=== PATIENT | male | born 1965 | race Caucasian/White ===

== ENCOUNTER 2017-08-17 22:08 | Emergency (ER) | payer MEDICAID ==
[~2017-08-17] VITALS: Ht 177.8 cm; Wt 82.6 kg
[2017-08-17 22:08] VITALS: BP_SYST 158
[~2017-08-17 22:08] MED LIST: LISI10TA PO
--- NOTE | 2017-08-17 22:08 | NUR ---
Patient to ER bed 5 to gown for evaluation. Side rails up. Report given to Wilbert PORTER.
--- NOTE | 2017-08-17 22:10 | NUR ---
Patient arrived to ED a/o x 4 with c/o insect bite to right buttocks. Patient reports he noticed bite x 1 day ago. Unknown source. Presents with red and inflammed right buttocks. Denies fever. Denies chills. Skin warm, dry and pink. Respirations even and unlabored. Upon assessment patient has finger stick blood glucose of 458. ED MD Greenberg made aware of values.
[2017-08-17] MEDS ORDERED: INSULIN REGULAR, HUMAN 10 UNITS/0.1 ML INJ IVP ONE (22:30)
[2017-08-17] MEDS ORDERED: CEFAZOLIN 2 GM IVPB PREMIX 50 ML IV ONE (22:30)
[2017-08-17] MEDS ORDERED: NACL 0.9% 1,000 ML IV ONE (22:30)
--- NOTE | 2017-08-17 22:30 | NUR ---
ER at bedside examining patient.
--- NOTE | 2017-08-17 22:30 | NUR ---
20 gauge angiocath placed to left forearm. Use of asceptic technique. Opsite placed over site. Blood return noted. Blood for lab drawn from site. Flushed with 10 cc of normal saline. No evidence of infiltration noted. Patient tolerated well.
--- NOTE | 2017-08-17 22:41 | NUR ---
Medicated per MD orders. IVF infusing with no s/s of infiltration at this time. Will cont to monitor
[2017-08-17 22:49] LABS: BASOPHILS % (AUTO) 0.5 % (0.0-2.0); EOSINOPHILS # (AUTO) 0.4 K/uL (0.0-0.4); EOSINOPHILS % (AUTO) 3.7 % (0.0-4.0); HEMATOCRIT 44.1 % (36-54); HEMOGLOBIN 14.5 g/dL (14.0-18.0); LYMPHOCYTES # (AUTO) 3.5 K/uL (1.0-5.5); LYMPHOCYTES % (AUTO) 35.5 % (20.5-51.5); MEAN CORPUSCULAR HEMOGLOBIN 30 pg (27-31); MEAN CORPUSCULAR HGB CONC 33 % (32-36); MEAN CORPUSCULAR VOLUME 91 fL (79.0-98.0); MONOCYTES # (AUTO) 0.8 K/uL (0.0-1.0); NEUTROPHILS % (AUTO) 52.3 % (40.0-70.0); PLATELET COUNT (AUTO) 264 K/uL (130-430); RED BLOOD CELL COUNT(AUTO) 4.85 MIL/uL (4.2-6.2); RED CELL DISTRIBUTION WIDTH 12.5 % (9.0-15.0); WHITE BLOOD COUNT (AUTO) 9.7 K/uL (4.8-10.8)
[2017-08-17] MEDS ORDERED: ceFAZolin SODIUM 1 GM VIAL ONE (23:00)
[2017-08-17 23:01] LABS: CALCIUM 8.9 mg/dL (8.4-11.0); CREATININE 1.08 mg/dL (0.55-1.30); POTASSIUM 3.9 mmol/L (3.5-5.1)
[2017-08-17 23:11] LABS: ALBUMIN 3.6 g/dL (3.4-4.8); TOTAL BILIRUBIN 0.2 mg/dL (0.0-1.0)
--- NOTE | 2017-08-17 23:40 | NUR ---
ED Kwaw at bedside reassessing patient.
[2017-08-18] VITALS: BP_SYST 153
--- NOTE | 2017-08-18 | NUR ---
Patient given written and verbal discharge instructions and verbalizes understanding. ER MD discussed with patient the results and treatment provided. Patient in stable condition. ID arm band removed. IV catheter removed intact and dressing applied, no active bleeding. Rx of keflex and metformin given. Patient educated on pain management and to follow up with PMD. Pain Scale 2/10 tolerable for patient. Opportunity for questions provided and answered.
== END 2017-08-18 | disposition home or self-care (01) ==
LOC: SED 22:08
DX: S30.860A Insect bite (nonvenomous) of lower back and pelvis, initial encounter (principal); L03.317 Cellulitis of buttock; E11.65 Type 2 diabetes mellitus with hyperglycemia; I10 Essential (primary) hypertension; Z88.0 Allergy status to penicillin; Z88.2 Allergy status to sulfonamides; W57.XXXA Bitten or stung by nonvenomous insect and other nonvenomous arthropods, initial encounter; Y93.89 Activity, other specified; Y92.89 Other specified places as the place of occurrence of the external cause; Y99.8 Other external cause status
CPT/HCPCS: 36415; 80053; 85025; 96365; 96375; 99284; J0690; J1815; J7030; J7060

== ENCOUNTER 2017-09-12 04:51 | Emergency (ER) | payer MEDICAID ==
[~2017-09-12] VITALS: Ht 180.3 cm; Wt 83.0 kg
[2017-09-12 04:55] VITALS: BP_SYST 150
[2017-09-12 05:15] VITALS: BP_SYST 144
== END 2017-09-12 05:15 | disposition home or self-care (01) ==
LOC: SED 04:51
DX: L02.01 Cutaneous abscess of face (principal); E11.9 Type 2 diabetes mellitus without complications; I10 Essential (primary) hypertension; Z88.0 Allergy status to penicillin; Z88.2 Allergy status to sulfonamides
CPT/HCPCS: 99283

== ENCOUNTER 2017-10-10 12:32 | Emergency (ER) | payer MEDICAID ==
[~2017-10-10] VITALS: Ht 180.3 cm; Wt 81.6 kg
[2017-10-10 12:44] VITALS: BP_SYST 157
--- NOTE | 2017-10-10 12:48 | NUR ---
Ambulatory to bed 3
--- NOTE | 2017-10-10 12:50 | NUR ---
Pt states has a pimp to chin, squeezed it and has redness and wanted to make sure everything is alright. Pt denies n/v or fever. Small amount of discharge noted but no odor. No other injuries/complaints per pt or noted.
--- NOTE | 2017-10-10 12:55 | NUR ---
ER at bedside examining patient.
[2017-10-10 13:16] VITALS: BP_SYST 145
--- NOTE | 2017-10-10 13:16 | NUR ---
Patient given written and verbal discharge instructions and verbalizes understanding. ER MD discussed with patient the results and treatment provided. Patient in stable condition. ID arm band removed. Rx of bactrim, kelfex and motrin given. Patient educated on pain management and to follow up with PMD. Pain Scale 2. Opportunity for questions provided and answered.
== END 2017-10-10 13:16 | disposition home or self-care (01) ==
LOC: SED 12:32
DX: L73.9 Follicular disorder, unspecified (principal); E11.9 Type 2 diabetes mellitus without complications; I10 Essential (primary) hypertension
CPT/HCPCS: 99283

== ENCOUNTER 2018-03-19 17:36 | Emergency (ER) | payer MEDICAID ==
[~2018-03-19] VITALS: Ht 180.3 cm; Wt 70.3 kg
[2018-03-19 18:05] VITALS: BP_SYST 110
--- NOTE | 2018-03-19 18:05 | NUR ---
Placed in room 06. Placed on cardiac cath technician, blood pressure machine and pulse oximeter. To gown for exam. Side rails up.
--- NOTE | 2018-03-19 18:06 | NUR ---
Dr. Chase notified of pt placed in bed. Pt denies chest pain/nausea at this time.
[2018-03-19 18:55] VITALS: BP_SYST 110
--- NOTE | 2018-03-19 19:02 | NUR ---
Pt AAOx4 ambulated into ED c/o R sided flank pain x 1 week with acute exacerbation last two days. Last night, pt was tired, feeling nauseous, denies vomiting, but unable to tolerate foods/liquids. Pt tachycardic at 135. Last meal was this morning. No other injuries/complaints per pt/noted. Will continue to monitor.
--- NOTE | 2018-03-19 19:08 | NUR ---
ER Dr. Chase at bedside examining patient.
[2018-03-19 19:45] LABS: BASOPHILS # (AUTO) 0.3 K/uL (0.0-0.2); BASOPHILS % (AUTO) 1.7 % (0.0-2.0); EOSINOPHILS # (AUTO) 0.1 K/uL (0.0-0.4); EOSINOPHILS % (AUTO) 0.8 % (0.0-4.0); HEMATOCRIT 50.5 % (36-54); HEMOGLOBIN 16.9 g/dL (14.0-18.0); LYMPHOCYTES # (AUTO) 3.2 K/uL (1.0-5.5); LYMPHOCYTES % (AUTO) 21.2 % (20.5-51.5); MEAN CORPUSCULAR HEMOGLOBIN 30 pg (27-31); MEAN CORPUSCULAR HGB CONC 34 % (32-36); MEAN CORPUSCULAR VOLUME 88 fL (79.0-98.0); MONOCYTES # (AUTO) 0.9 K/uL (0.0-1.0); NEUTROPHILS # (AUTO) 10.6 K/uL (1.8-7.7); NEUTROPHILS % (AUTO) 70.3 % (40.0-70.0); PLATELET COUNT (AUTO) 322 K/uL (130-430); RED BLOOD CELL COUNT(AUTO) 5.74 MIL/uL (4.2-6.2); RED CELL DISTRIBUTION WIDTH 12.5 % (9.0-15.0); WHITE BLOOD COUNT (AUTO) 15.1 K/uL (4.8-10.8)
[2018-03-19] MEDS ORDERED: ASPIRIN 81 MG TAB.CHEW PO ONE (19:45)
[2018-03-19] MEDS ORDERED: HEPARIN SODIUM,PORCINE 5000 UNITS/ML VIAL IVP ONE (19:45)
[2018-03-19] MEDS ORDERED: ASPIRIN 81 MG TAB.CHEW ONE (19:46)
--- NOTE | 2018-03-19 19:48 | NUR ---
Aspirin and Heparin administered. Pt tolerated well. No adverse reactions noted. Addendum: 03/19/18 at 1953 by HARSHAD Heparin 5000 units given verified by Chris Oreilly Sup
[2018-03-19] MEDS ORDERED: NITROGLYCERIN 0.4 MG TAB.SUBL SL ONE (19:55)
--- NOTE | 2018-03-19 19:55 | NUR ---
Patient to be transferred to [facility]. Is being transferred due to higher level of care. Receiving facility has accepting physician and available space. ER physician Salvatore has signed transfer form. Patient or responsible green party has agreed to transfer and signed form. Patient belongings inventoried and will be sent with patient. Copy of nursing notes, lab reports, EKG, Physicians Orders and X-rays to be sent with patient. Report called to [facility] at receiving facility. Receiving physician is Dr. Nelson. [facility] ambulance service has been called for transfer. ETA is now.
[2018-03-19 20:04] VITALS: BP_SYST 108
[2018-03-19 20:06] LABS: CREATININE 0.91 mg/dL (0.55-1.30); POTASSIUM 4.4 mmol/L (3.5-5.1)
[2018-03-19 20:10] LABS: ALBUMIN 3.7 g/dL (3.4-4.8); TOTAL BILIRUBIN 0.6 mg/dL (0.0-1.0)
== END 2018-03-19 19:55 | disposition short-term general hospital (02) ==
LOC: SED 17:36
DX: I21.9 Acute myocardial infarction, unspecified (principal); E11.9 Type 2 diabetes mellitus without complications; I10 Essential (primary) hypertension
CPT/HCPCS: 36415; 80053; 85025; 93005; 96374; 99285; J1644

== ENCOUNTER 2018-03-31 21:11 | Inpatient (IN) | payer MEDICAID ==
[~2018-03-31] VITALS: Ht 180.3 cm; Wt 68.0 kg
--- NOTE | 2018-03-31 21:14 | NUR ---
ER MD White at bedside for medical evaluation.
--- NOTE | 2018-03-31 21:14 | NUR ---
Patient to ER bed 8 to gown for evaluation. Side rails up.
[2018-03-31] MEDS ORDERED: NACL 0.9% 1,000 ML IV ONE (21:17)
[2018-03-31 21:20] VITALS: BP_SYST 87
--- NOTE | 2018-03-31 21:25 | NUR ---
Patient AOx4, ambulatory, presents to ER with complaint of right flank pain 9/10 x 2 weeks. Patient states he was recently discharged from [facility] s/p IN. Patient has hx of HTN, DM, IN with 2 stent (distal RCA and Mid RCA). HR 109 on arrival. at bedside.
[2018-03-31] MEDS ORDERED: CLOPIDOGREL BISULFATE 75 MG TABLET PO ONE (21:30)
[2018-03-31] MEDS ORDERED: ASPIRIN 81 MG TAB.CHEW PO ONE (21:30)
[2018-03-31] MEDS ORDERED: NITROGLYCERIN 0.4 MG TAB.SUBL SL ONE (21:30)
--- NOTE | 2018-03-31 21:50 | NUR ---
# 20 gauge angiocath placed to RAC. Use of asceptic technique. Opsite placed over site. Blood return noted. Blood for lab drawn from site. Flushed with 10 cc of normal saline. No evidence of infiltration noted. Patient tolerated well.
[2018-03-31 22:10] LABS: BASOPHILS # (AUTO) 0.1 K/uL (0.0-0.2); BASOPHILS % (AUTO) 0.6 % (0.0-2.0); EOSINOPHILS # (AUTO) 0.3 K/uL (0.0-0.4); EOSINOPHILS % (AUTO) 3.4 % (0.0-4.0); HEMOGLOBIN 12.1 g/dL (14.0-18.0); LYMPHOCYTES # (AUTO) 3.1 K/uL (1.0-5.5); LYMPHOCYTES % (AUTO) 35.4 % (20.5-51.5); MEAN CORPUSCULAR HEMOGLOBIN 30 pg (27-31); MEAN CORPUSCULAR HGB CONC 34 % (32-36); MEAN CORPUSCULAR VOLUME 89 fL (79.0-98.0); MONOCYTES # (AUTO) 0.7 K/uL (0.0-1.0); MONOCYTES % (AUTO) 7.7 % (1.7-9.3); NEUTROPHILS # (AUTO) 4.6 K/uL (1.8-7.7); NEUTROPHILS % (AUTO) 52.9 % (40.0-70.0); PLATELET COUNT (AUTO) 489 K/uL (130-430); RED BLOOD CELL COUNT(AUTO) 4.07 MIL/uL (4.2-6.2); RED CELL DISTRIBUTION WIDTH 12.6 % (9.0-15.0); WHITE BLOOD COUNT (AUTO) 8.8 K/uL (4.8-10.8)
--- NOTE | 2018-03-31 22:10 | NUR ---
No adverse reactions noted after medication administration. Will continue to monitor.
[2018-03-31 22:13] LABS: CALCIUM 8.1 mg/dL (8.4-11.0); CREATININE 0.87 mg/dL (0.55-1.30); POTASSIUM 3.8 mmol/L (3.5-5.1)
[2018-03-31 22:17] LABS: ALBUMIN 3.2 g/dL (3.4-4.8); TOTAL BILIRUBIN 0.2 mg/dL (0.0-1.0)
[2018-03-31 22:19] LABS: BILIRUBIN,URINE NEGATIVE (NEGATIVE); BLOOD, URINE NEGATIVE (NEGATIVE); CLARITY/URINE SL HAZY (CLEAR); COLOR,URINE YELLOW (YELLOW); GLUCOSE,URINE NEGATIVE (NEGATIVE); KETONES,URINE TRACE (NEGATIVE); LEUKOCYTE ESTERASE ,URINE NEGATIVE (NEGATIVE); NITRITE, URINE NEGATIVE (NEGATIVE); PROTEIN URINE NEGATIVE (NEGATIVE)
[2018-03-31 22:35] LABS: BACTERIA,URINE FEW /HPF (None Seen); RBC,URINE NONE SEEN /HPF (0-3); WBC,URINE 0-3 /HPF (0-3)
[2018-03-31 22:36] LABS: FINE GRANULAR CASTS,URINE 0-10 /LPF (None Seen); HYALINE CASTS, URINE 0-10 /LPF (None Seen); MUCUS,URINE 3+ /LPF (None Seen)
[2018-03-31 22:39] LABS: PROTHROMBIN TIME 10.5 SECS (9.5-12.5)
--- NOTE | 2018-03-31 22:55 | NUR ---
End of life care decisions discussed with patient by Dr. White. Opportunity for questions and concerns addressed. Patient's code status is FULL CODE, paperwork completed and placed in chart.
[2018-03-31] MEDS ORDERED: TICA90TA PO (23:19)
[2018-03-31] MEDS ORDERED: ASPI-1063 PO (23:19)
[2018-03-31] MEDS ORDERED: GABA-531 PO (23:19)
[2018-03-31] MEDS ORDERED: CHOL3000 PO (23:19)
[2018-03-31] MEDS ORDERED: METF1000 PO (23:19)
[2018-03-31] MEDS ORDERED: TAMS-11 PO (23:19)
[2018-03-31] MEDS ORDERED: GLIP5TAB13 PO (23:19)
[2018-03-31] MEDS ORDERED: SITA100T7 PO (23:19)
[2018-03-31] MEDS ORDERED: METO25TA3 PO (23:19)
--- NOTE | 2018-03-31 23:19 | NUR ---
Medication reconciliation completed with information provided by PATIENT. Any prior medication reconciliation on file was reviewed and corrected.
--- NOTE | 2018-03-31 23:42 | NUR ---
MD Rae requested for MD White speak to MD Hoang prior to admission.
[2018-04-01] VITALS (22 sets, daily range): BP systolic 64–120
--- NOTE | 2018-04-01 00:12 | NUR ---
Patient will be admitted to care of Dr. Rae. Admitted to ICU unit. Will go to room 3. Belongings list completed. Summary report printed. Report will be given at bedside.
[2018-04-01] MEDS ORDERED: NITROGLYCERIN 0.4 MG TAB.SUBL SL PRN (00:30)
[2018-04-01] MEDS ORDERED: INSULIN REGULAR, HUMAN 100 UNITS/ML, 10 ML VIAL (novoLIN R) SUBCUT PRN (00:30)
[2018-04-01] MEDS ORDERED: MILK OF MAGNESIA 30 ML UDC PO PRN (00:30)
--- NOTE | 2018-04-01 00:40 | NUR ---
ADMISSION NOTE Received patient from ER via gurney. Patient admitted with diagnosis of CHEST PAIN AND RT FLANK PAIN. Patient is awake, alert, oriented X 4 and able to verbalize needs. Patient oriented to hospital room, call light, toileting, pain management and safety-teach back done. PT ON 2L NC, SAT 99%. RAC 20G TO SL. PT Personal belongings checked and Belongings List documented. HOB ELEVATED, BED IN LOWEST POSITION, CALL LIGHT IN REACH. WILL CONTINUE TO MONITOR.
[2018-04-01] MEDS ORDERED: TAMSULOSIN HCL 0.4 MG CAP ONE (01:26)
[2018-04-01] MEDS: TAMSULOSIN HCL 0.4 MG CAP PO SCH ×2 (01:27→08:29)
[2018-04-01] MEDS: KETOROLAC TROMETHAMINE 15 MG VIAL IVP PRN ×2 (01:28→08:29)
--- NOTE | 2018-04-01 04:00 | NUR ---
RN ROUNDS PT RESTING COMFORTABLY IN BED WITH EYES CLOSED, BREATHING IS EVEN AND UNLABORED ON 2L NC. VSS, NO SIGNS OF DISTRESS NOTED. WILL CONTINUE TO MONITOR.
--- NOTE | 2018-04-01 04:06 | NUR ---
CALLED CONSULT FOR DR. HAYDEN @2107. SPOKE TO PHOTOGRAPHY ASSISTANT #[id number]. NURSE IS AWARE
--- NOTE | 2018-04-01 04:12 | NUR ---
CALLED CONSULT FOR DR. KIMBROUGH. CONSULT WILL GO TO HIS P.A (KATHERINE NUNO). SPOKE TO ABDULKADIR. NURSE IS AWARE.
--- NOTE | 2018-04-01 07:32 | NUR ---
ENDORSEMENT BEDSIDE REPORT GIVEN TO MICHELE PORTER USING SBAR APPROACH.
--- NOTE | 2018-04-01 08:00 | NUR ---
RN OPENING NOTE PT AAOX4, SPEAKS MALTESE AND IS COOPERATIVE. NO COMPLAINT OF CHEST PAIN OR SOB, BUT COMPLAINS OF MODERATE R FLANK PAIN (PRN TORADOL ADMINISTERED). BREATHING SYMMETRICAL AND UNLABORED. IV PORT IS PATENT AND S/L, DRESSING DRY AND INTACT. PT EDUCATED ON UNIT SAFETY AND DEMONSTRATED ABILITY TO USE CALL LIGHT, WHICH IS WITHIN REACH. FALL PRECAUTIONS IN PLACE.
[2018-04-01] MEDS: metFORMIN HCL 500 MG TABLET PO SCH ×2 (08:28→17:05)
[2018-04-01] MEDS: ENOXAPARIN SODIUM 40 MG/0.4 ML SYRINGE SUBCUT SCH (08:28)
[2018-04-01] MEDS: ASPIRIN 81 MG TABLET(ECOTRIN) PO SCH (08:29)
[2018-04-01] MEDS: GABAPENTIN 300 MG CAPSULE PO SCH ×3 (08:29→21:06)
[2018-04-01] MEDS: METOPROLOL SUCCINATE 25 MG TAB.SR.24H (TOPROL XL) PO SCH (09:00)
--- NOTE | 2018-04-01 09:19 | NUR ---
Nutrition Update Peter Scale 17 noted. Pt admitted for chest pain, R flank pain. Diet: [facility] BMI: 20.9 kg/m2 RD to follow per nutrition care standards.
--- NOTE | 2018-04-01 09:30 | NUR ---
Toprol XL held due to BP Dr. Lucas paged
--- NOTE | 2018-04-01 11:50 | NUR ---
DR. KIMBROUGH AT BEDSIDE CONFIRMED KIDNEY STONES AND EDUCATED PT TO SCHEDULE AN OUTPATIENT PROCEDURE WITH HIS OFFICE ONCE HE IS DISCHARGED HOME.
--- NOTE | 2018-04-01 12:05 | NUR ---
CALLED PAGED DR HAYDEN REGARDING ORDERS AND CONSULT CALLED AT 4AM SPOKE TO BRYAN.
--- NOTE | 2018-04-01 12:23 | NUR ---
REPAGED DR HAYDEN.
--- NOTE | 2018-04-01 12:28 | NUR ---
Discharge Planning ROCK ROOM WORKER met with patient at bedside. Patient stated he plans to return home and lives with his mother and nephew. He has been dizzy and has fallen. Possibly a FWW would be helpful. Patient has no DME at home. He has been approved for four home health visits and has had one of those visits. He cannot remember the name of the [employer] company. ROCK ROOM WORKER phoned patient's sister, Angelika [phone]. The agency is [facility], . ROCK ROOM WORKER phoned Richa at [facility]. They will need an order to resume services. If patient is hospitalized longer than seven days, they will need to discharge patient. Customer Service Representative Teller/Case Management and Discharge Planning will remain available.
[2018-04-01] MEDS ORDERED: CLOPIDOGREL BISULFATE 75 MG TABLET PO ONE (13:00)
--- NOTE | 2018-04-01 13:40 | NUR ---
DR. PUIR AT BEDSIDE NEW ORDERS RECEIVED
[2018-04-01] MEDS ORDERED: NS 500 ML IV ONE (14:15)
--- NOTE | 2018-04-01 18:49 | NUR ---
RN CLOSING NOTE PT WATCHING TV WITH NO COMPLAINT OF PAIN.
--- NOTE | 2018-04-01 19:30 | NUR ---
DR URIBEIUM HERE AND SAID PT OK TO GO TO TELE AND HE WILL ENTER THE ORDER
--- NOTE | 2018-04-01 20:00 | NUR ---
PT LYING IN BED, DOZING ON AND OFF.DENIES PAIN THIS TIME.MADE AWARE OF THE PLAN TO TRANSFER TO TELE [facility].
--- NOTE | 2018-04-01 20:30 | NUR ---
DR BALLARD CONTACTED AND CONFIRM TRANSFER TO TELE SINCE ORDER WAS NOT PLACED YET.
--- NOTE | 2018-04-01 21:20 | NUR ---
Admission Note Received patient from ICU with diagnosis of chest pain, right flank pain. Patient is awake, alert, and oriented x4. Patient denies pain. No s/s of distress. Breathing is even and unlabored. Initial Plan of Care discussed-patient verbalized understanding. Oriented to room, call light, pain management and safety. Bed is down, locked, side rails up x2, call light within reach. Bed alarm on. Will continue to monitor.
--- NOTE | 2018-04-01 21:20 | NUR ---
TRANSFERRED TO RM 116-A VIA W/C IN STABLE CONDITION.REPORT GIVEN TO DMITRY.PT OWN MEDS WAS GIVEN TO NURSE PLUS BELONGINGS.SISTER JOLANTA NOTIFIED OF TRANSFER(TEL # [phone])
--- NOTE | 2018-04-01 23:45 | NUR ---
Rounds Patient is resting in bed with eyes closed. No s/s of distress. Bed is down, locked, side rails up x2, call light within reach. Bed alarm on. Will continue to monitor.
--- NOTE | 2018-04-02 01:36 | NUR ---
Rounds Patient is resting in bed with eyes closed at this time. Breathing is even and unlabored. Bed is down, locked, side rails up x2, call light within reach. Bed alarm on. Will continue to monitor.
[2018-04-02 01:53] VITALS: BP_SYST 105
--- NOTE | 2018-04-02 03:23 | NUR ---
Rounds Patient is resting quietly in bed with eyes closed. No s/s of respiratory distress noted. Breathing is even and unlabored. Bed is down, locked, side rails up x2, call light within reach. Bed alarm on. Will continue to monitor.
[2018-04-02 04:05] VITALS: BP_SYST 104
--- NOTE | 2018-04-02 05:17 | NUR ---
Rounds Patient is resting in bed with eyes closed. No s/s of respiratory distress noted at this time. Breathing is even and unlabored. Bed is down, locked, side rails up x2, call light within reach. Bed alarm on. Will continue to monitor.
[2018-04-02 06:40] LABS: BASOPHILS % (AUTO) 0.2 % (0.0-2.0); EOSINOPHILS # (AUTO) 0.3 K/uL (0.0-0.4); HEMATOCRIT 34.6 % (36-54); HEMOGLOBIN 11.9 g/dL (14.0-18.0); LYMPHOCYTES # (AUTO) 2.8 K/uL (1.0-5.5); LYMPHOCYTES % (AUTO) 31.3 % (20.5-51.5); MEAN CORPUSCULAR HEMOGLOBIN 31 pg (27-31); MEAN CORPUSCULAR HGB CONC 35 % (32-36); MEAN CORPUSCULAR VOLUME 89 fL (79.0-98.0); MONOCYTES # (AUTO) 0.8 K/uL (0.0-1.0); MONOCYTES % (AUTO) 8.7 % (1.7-9.3); NEUTROPHILS # (AUTO) 4.9 K/uL (1.8-7.7); NEUTROPHILS % (AUTO) 56.8 % (40.0-70.0); PLATELET COUNT (AUTO) 386 K/uL (130-430); RED BLOOD CELL COUNT(AUTO) 3.87 MIL/uL (4.2-6.2); RED CELL DISTRIBUTION WIDTH 12.8 % (9.0-15.0); WHITE BLOOD COUNT (AUTO) 8.8 K/uL (4.8-10.8)
[2018-04-02 06:48] LABS: CALCIUM 8.2 mg/dL (8.4-11.0); CREATININE 0.66 mg/dL (0.55-1.30); POTASSIUM 4.2 mmol/L (3.5-5.1)
--- NOTE | 2018-04-02 07:21 | NUR ---
Closing note Patient is resting in bed waiting for breakfast. Patient denies pain at this time. No s/s of respiratory distress noted. Breathing is even and unlabored. All needs met and anticipated by noc shift nurses. Bed is down, locked, side rails up x2, call light within reach. Will endorse to day shift nurse.
[2018-04-02 08:00] VITALS: BP_SYST 99
--- NOTE | 2018-04-02 08:00 | NUR ---
RN OPENING NOTE PATIENT RESTING ON BED, ALERT ORIENTED X4, PATIENT DENIES PAIN OR DISCOMFORT. PATIENT WAS ASSESSED VITAL SIGNS ARE STABLE. PATIENT DENIES FEELING DIZZY.PATIENT'S BED WERE PUT AT A LOW POSITION AND CALL LIGHT WITHIN REACH, WILL ROUND EVERY HOUR FOR FALL PREVENTION AND WILL PASS THE MEDICINE AT 0900.
[2018-04-02] MEDS ORDERED: NON-FORMULARY MEDICATION (Ticagrelor (Brilinta) 90 MG) PO SCH (09:00)
[2018-04-02] MEDS: TAMSULOSIN HCL 0.4 MG CAP PO SCH (09:15)
[2018-04-02] MEDS: ASPIRIN 81 MG TABLET(ECOTRIN) PO SCH (09:15)
[2018-04-02] MEDS: metFORMIN HCL 500 MG TABLET PO SCH (09:16)
[2018-04-02] MEDS: GABAPENTIN 300 MG CAPSULE PO SCH ×2 (09:16→14:31)
[2018-04-02] MEDS: METOPROLOL SUCCINATE 25 MG TAB.SR.24H (TOPROL XL) PO SCH (09:17)
[2018-04-02] MEDS: ENOXAPARIN SODIUM 40 MG/0.4 ML SYRINGE SUBCUT SCH (09:19)
--- NOTE | 2018-04-02 10:00 | NUR ---
RN NOTE. PATIENT RESTING ON BED, ATE HIS BREAKFAST ALREADY, PATIENT WAS GIVEN HER P.O MEDICATION, EXPLAINED THE INDICATION OF EACH OF THEM, PATIENT WAS EDUCATED ABOUT THE SIDE EFFECTS OF ASPIRIN., PATIENT VERBALIZED UNDERSTANDING, PATIENT WAS HELPED TO THE BATHROOM FOR A BM, WILL CONTINUE TO MONITOR.
--- NOTE | 2018-04-02 12:00 | NUR ---
RN NOTE PATIENT RESTING ON BED, WAS HELPED TO THE BATHROOM, PATIENT BLOOD SUGAR WAS MEASURED AT 1130 AM, IT WAS 59MG/DL. PATIENT WAS GIVEN APPLE JUICE, WHEN THE BLOOD SUGAR WAS REMEASURED AFTER FEEDING THE PATIENT, IT CAME OUT TO BE 108MG/DL. WILL CALL DR. BALLARD TO MAKE HIM AWARE, SPECIALLY HE IS PLANNING TO D/C THE PATIENT HOME.
--- NOTE | 2018-04-02 12:06 | NUR ---
DC PLANNING Called & spoke w Dr Rae to discuss dc planning. States has not seen pt yet will see pt later today, ordered PT eval, dc planning for home to [facility] home health.
[2018-04-02 12:34] VITALS: BP_SYST 98
--- NOTE | 2018-04-02 13:33 | NUR ---
Database Marketing Manager DCP obtained pt's resume HH order. DCP faxed inquiry to [facility]. DCP will continue to follow up.
--- NOTE | 2018-04-02 14:00 | NUR ---
RN NOTE PATIENT RESTING ON BED, DR. BALLARD CAME BY AND WAS TOLD ABOUT THE PATIENT LOW BLOOD SUGAR DUE TO TREATMENT, AND HE SAID WILL FIX THE PROBLEM, PATIENT MOSTLY WILL BE D/C HOME TODAY WITH HOME HEALTH. WILL CONTINUE TO FOLLOW UP. .
--- NOTE | 2018-04-02 14:40 | NUR ---
Marinator MARITZAP received a call from [facility] stating they are able to resume services for pt. MARITZAP will fax DC order upon DC.
[2018-04-02 15:27] VITALS: BP_SYST 99
--- NOTE | 2018-04-02 15:52 | NUR ---
Hospital Wellness Coordinator SALINAS contacted [facility] to inform them of pt's DC order. SALINAS spoke with Nat who will inform Kenroy, tool procurement coordinator.
--- NOTE | 2018-04-02 16:00 | NUR ---
RN CLOSING NOTE I WILL BE GOING FOR LUNCH, EDUIN THE ADN NURSE WILL DISCHARGE THE PATIENT, DISCHARGE INSTRUCTION ALREADY PREPARED FOR HER WELL THE REST OF THE PAPER WORK, i'LL SIGN OFF PATIENT CARE TO EDUIN FOR DISCHARGING THE PATIENT.
[2018-04-02 16:26] VITALS: BP_SYST 107
--- NOTE | 2018-04-07 10:51 | NUR ---
Discharge Follow Up Phone Call TOOL MAINTENANCE TECHNICIAN phoned patient, . Patient stated he was doing fine. He filled his prescriptions and is taking his medication as directed. He has been following up with his PCP, Dr Blanca Man, regularly, most recently 04/03/18. He has a urology appointment on 04/16/18 and is awaiting cardio rehab appointment. [facility] has resumed services. Patient is using his blood glucose monitor and his sugars are now staying stable. Patient has no questions or concerns.
== END 2018-04-02 16:30 | disposition home health service (06) | DRG 465 ==
LOC: SED 21:11 → SIC 04-01 00:04 → STU 04-01 21:23
PROVIDERS: ADMIT Family Medicine; ATTEND Family Medicine
DX: N20.0 Calculus of kidney (principal); I42.9 Cardiomyopathy, unspecified; I95.9 Hypotension, unspecified; I48.92 Unspecified atrial flutter; E11.9 Type 2 diabetes mellitus without complications; M94.0 Chondrocostal junction syndrome [Tietze]; I10 Essential (primary) hypertension; I25.10 Atherosclerotic heart disease of native coronary artery without angina pectoris; F17.210 Nicotine dependence, cigarettes, uncomplicated; J44.9 Chronic obstructive pulmonary disease, unspecified; K59.09 Other constipation; Z79.82 Long term (current) use of aspirin; Z87.442 Personal history of urinary calculi; Z95.5 Presence of coronary angioplasty implant and graft; Z79.899 Other long term (current) drug therapy
CPT/HCPCS: 36415; 71045; 80048; 80053; 81000-TC; 82550-TC; 82962; 83690-TC; 84484; 85025; 85610-TC; 85730-TC; 87040-TC; 87081; 87086; 93005; 93306; 96360; 99285; J1650; J1815; J1885; J7040

== ENCOUNTER 2018-10-23 16:15 | Inpatient (IN) | payer MEDICAID ==
[~2018-10-23] VITALS: Ht 175.3 cm; Wt 64.0 kg
[2018-10-23 16:15] VITALS: BP_SYST 97
[~2018-10-23 16:15] MED LIST changes: +ASPI-1153 PO; +CHOL3000 PO; +GABA-531 PO; +GLIP5TAB13 PO; +METF1000 PO; +METO25TA3 PO; +SITA100T11 PO; +TAMS-11 PO; +TICA90TA PO
[2018-10-23] MEDS ORDERED: NACL 0.9% 1,000 ML IV ONE (16:34)
[2018-10-23 17:17] LABS: EOSINOPHILS # (AUTO) 0.1 K/uL (0.0-0.4); MEAN CORPUSCULAR HGB CONC 33 % (32-36); MONOCYTES # (AUTO) 0.7 K/uL (0.0-1.0); NEUTROPHILS # (AUTO) 1.8 K/uL (1.8-7.7)
[2018-10-23 17:18] LABS: CALCIUM 8.6 mg/dL (8.4-11.0); CREATININE 1.05 mg/dL (0.55-1.30); POTASSIUM 3.7 mmol/L (3.5-5.1)
[2018-10-23 17:21] LABS: BASOPHILS % (AUTO) 0.3 % (0.0-2.0); EOSINOPHILS % (AUTO) 3.9 % (0.0-4.0); HEMATOCRIT 38.5 % (36-54); HEMOGLOBIN 12.7 g/dL (14.0-18.0); LYMPHOCYTES # (AUTO) 1.1 K/uL (1.0-5.5); LYMPHOCYTES % (AUTO) 28.7 % (20.5-51.5); MEAN CORPUSCULAR HEMOGLOBIN 27 pg (27-31); MEAN CORPUSCULAR VOLUME 83 fL (79.0-98.0); MONOCYTES % (AUTO) 18.1 % (1.7-9.3); PLATELET COUNT (AUTO) 227 K/uL (130-430); RED BLOOD CELL COUNT(AUTO) 4.66 MIL/uL (4.2-6.2); RED CELL DISTRIBUTION WIDTH 15.9 % (9.0-15.0); WHITE BLOOD COUNT (AUTO) 3.7 K/uL (4.8-10.8)
[2018-10-23 17:23] LABS: ALBUMIN 3.6 g/dL (3.4-4.8); TOTAL BILIRUBIN 0.3 mg/dL (0.0-1.0)
[2018-10-23] MEDS ORDERED: NS 500 ML IV ONE (17:30)
[2018-10-23] MEDS ORDERED: MIDO2.5T PO (17:58)
[2018-10-23] MEDS ORDERED: IBUP-2018 PO (17:58)
[2018-10-23] MEDS ORDERED: CLOP300T2 PO (17:58)
[2018-10-23] MEDS ORDERED: FERR-69 PO (17:58)
[2018-10-23] MEDS ORDERED: SIMV5TAB59 PO (17:58)
[2018-10-23] MEDS ORDERED: FLOR.1 PO (17:58)
[2018-10-23 18:29] VITALS: BP_SYST 101
[2018-10-23] MEDS ORDERED: DEXTROSE 50% JECT 50 ML DISP.SYRIN IVP PRN (18:45)
[2018-10-23] MEDS ORDERED: MILK OF MAGNESIA 30 ML UDC PO PRN (18:45)
[2018-10-23] MEDS ORDERED: MUPIROCIN 2% TOPICAL OINTMENT 22 GM TP PRN (18:45)
[2018-10-23] MEDS ORDERED: DOCUSATE SODIUM 100 MG CAPSULE PO PRN (18:45)
[2018-10-23] MEDS ORDERED: HYDROcodone/ACETAMIN 5-325 MG TAB (NORCO/ VICODIN) PO PRN (18:45)
[2018-10-23] MEDS ORDERED: ZOLPIDEM TARTRATE 5 MG TABLET PO PRN (18:45)
[2018-10-23] MEDS ORDERED: ACETAMINOPHEN 325 MG TABLET PO PRN (18:45)
[2018-10-23] MEDS ORDERED: MORPHINE 4 MG/ML INJ. SYRINGE IVP PRN (18:45)
[2018-10-23] MEDS ORDERED: ONDANSETRON HCL 4 MG/2 ML VIAL IVP PRN (18:45)
[2018-10-23] MEDS ORDERED: LORazepam 2 MG/ML VIAL IVP PRN (18:45)
[2018-10-23 19:53] LABS: BILIRUBIN,URINE NEGATIVE (NEGATIVE); BLOOD, URINE NEGATIVE (NEGATIVE); CLARITY/URINE CLEAR (CLEAR); COLOR,URINE YELLOW (YELLOW); GLUCOSE,URINE NEGATIVE (NEGATIVE); KETONES,URINE 1+ (NEGATIVE); LEUKOCYTE ESTERASE ,URINE NEGATIVE (NEGATIVE); NITRITE, URINE NEGATIVE (NEGATIVE); PROTEIN URINE 1+ (NEGATIVE); UROBILINOGEN,URINE 0.2 (0.2-1.0)
[2018-10-23 19:56] LABS: PHOSPHORUS 4.2 mg/dL (2.7-4.5); THYROID STIMULATING HORMONE 1.29 uIu/mL (0.34-4.82)
[2018-10-23 20:00] VITALS: BP_SYST 98
[2018-10-23 20:04] LABS: BACTERIA,URINE FEW /HPF (None Seen); BARBITURATE, URINE NEGATIVE (NEG <=200); BENZODIAZEPINE, URINE NEGATIVE (NEG <=150); CANNABINOID, URINE NEGATIVE (NEG <=50); COCAINE, URINE NEGATIVE (NEG <=150); HYALINE CASTS, URINE 30-50 /LPF (None Seen); METHAMPHETAMINES SCREEN,URINE NEGATIVE (NEG <=500); OPIATE, URINE NEGATIVE (NEG <=100); PHENCYCLIDINE SCREEN,URINE NEGATIVE (NEG <=25); RBC,URINE 0-3 /HPF (0-3); UR TRICYCLIC ANTIDEPRESSANTS NEGATIVE (NEG <=300); URINE AMPHETAMINE NEGATIVE (NEG <=500); URINE METHADONE NEGATIVE (NEG <=200); URINE OXYCODONE SCREEN NEGATIVE (NEG <=100); URINE PROPOXYPHENE SCREEN NEGATIVE (NEG <=300); WBC,URINE 0-3 /HPF (0-3)
[2018-10-23] MEDS: NACL 0.9% 1,000 ML IV SCH (20:48)
[2018-10-23] MEDS: INSULIN ASPART 100 UNITS/ML, 10 ML VIAL (NovoLOG) SUBCUT PRN (20:50)
[2018-10-23] MEDS ORDERED: SIMVASTATIN 20 MG TABLET PO SCH (21:00)
[2018-10-23] MEDS ORDERED: MIDODRINE HCL 2.5 MG TABLET (PROAMATINE) PO SCH (21:00)
[2018-10-24 00:07] VITALS: BP_SYST 98
[2018-10-24] MEDS: NACL 0.9% 1,000 ML IV SCH (04:15)
[2018-10-24] MEDS: INSULIN ASPART 100 UNITS/ML, 10 ML VIAL (NovoLOG) SUBCUT PRN (06:07)
[2018-10-24 06:53] LABS: BASOPHILS % (AUTO) 0.5 % (0.0-2.0); EOSINOPHILS # (AUTO) 0.2 K/uL (0.0-0.4); EOSINOPHILS % (AUTO) 4.7 % (0.0-4.0); HEMATOCRIT 33.7 % (36-54); LYMPHOCYTES # (AUTO) 1.6 K/uL (1.0-5.5); LYMPHOCYTES % (AUTO) 41.4 % (20.5-51.5); MEAN CORPUSCULAR HEMOGLOBIN 27 pg (27-31); MEAN CORPUSCULAR HGB CONC 33 % (32-36); MEAN CORPUSCULAR VOLUME 83 fL (79.0-98.0); MONOCYTES # (AUTO) 0.7 K/uL (0.0-1.0); MONOCYTES % (AUTO) 16.8 % (1.7-9.3); NEUTROPHILS # (AUTO) 1.5 K/uL (1.8-7.7); NEUTROPHILS % (AUTO) 36.6 % (40.0-70.0); PLATELET COUNT (AUTO) 176 K/uL (130-430); RED BLOOD CELL COUNT(AUTO) 4.05 MIL/uL (4.2-6.2); RED CELL DISTRIBUTION WIDTH 16.1 % (9.0-15.0)
[2018-10-24 07:23] LABS: CALCIUM 7.5 mg/dL (8.4-11.0); CREATININE 0.78 mg/dL (0.55-1.30); PHOSPHORUS 3.9 mg/dL (2.7-4.5); POTASSIUM 3.9 mmol/L (3.5-5.1)
[2018-10-24 07:43] VITALS: BP_SYST 110
[2018-10-24] MEDS ORDERED: ASPIRIN 81 MG TABLET(ECOTRIN) PO SCH (09:00)
[2018-10-24] MEDS ORDERED: MIDODRINE HCL 2.5 MG TABLET (PROAMATINE) PO SCH (09:00)
[2018-10-24] MEDS ORDERED: CLOPIDOGREL BISULFATE 75 MG TABLET PO SCH (09:00)
[2018-10-24] MEDS ORDERED: SIMVASTATIN 20 MG TABLET PO SCH (10:00)
[2018-10-24] MEDS ORDERED: MIDODRINE HCL 5 MG TABLET (PROAMATINE) PO SCH (11:24)
[2018-10-25] MEDS ORDERED: SIMVASTATIN 20 MG TABLET PO SCH (09:00)
== END 2018-10-24 10:44 | disposition left against medical advice (07) | DRG 422 ==
LOC: SED 16:15 → STU 18:10
PROVIDERS: ADMIT Family Medicine; ATTEND Family Medicine
DX: E86.0 Dehydration (principal); E11.40 Type 2 diabetes mellitus with diabetic neuropathy, unspecified; I95.9 Hypotension, unspecified; R65.10 Systemic inflammatory response syndrome (SIRS) of non-infectious origin without acute organ dysfunction; E87.1 Hypo-osmolality and hyponatremia; E78.5 Hyperlipidemia, unspecified; I10 Essential (primary) hypertension; J32.9 Chronic sinusitis, unspecified; I25.10 Atherosclerotic heart disease of native coronary artery without angina pectoris; F17.210 Nicotine dependence, cigarettes, uncomplicated; J98.11 Atelectasis; Z53.21 Procedure and treatment not carried out due to patient leaving prior to being seen by health care provider; I25.2 Old myocardial infarction; Z95.5 Presence of coronary angioplasty implant and graft; Z79.899 Other long term (current) drug therapy; Z79.82 Long term (current) use of aspirin; Z56.0 Unemployment, unspecified
CPT/HCPCS: 36415; 71045; 80048; 80053; 80061; 80307; 81000-TC; 82962; 83036; 83605; 83735-TC; 83880; 84100-TC; 84443-TC; 84484; 85025; 87040-TC; 93005; 96360; 96361; 99285; G0378; J1815; J7030; J7040

== ENCOUNTER 2023-09-05 10:27 | Day surgery (SDC) | payer MEDICAID ==
[~2023-09-05] VITALS: Ht 180.3 cm; Wt 77.1 kg
[~2023-09-05 10:27] MED LIST changes: -ASPI-1153 PO; +ASPI-1393 PO; +BACL5TAB PO; +EMPA10TA PO; +FERR-69 PO; -GABA-531 PO; -GLIP5TAB13 PO; -LISI10TA PO; +LYR25 PO; +METF-834 PO; -METF1000 PO; -METO25TA3 PO; +MIDO2.5T PO; +PIOG15TA8 PO; +SIMV5TAB59 PO; -SITA100T11 PO; -TICA90TA PO; +TRAM100T25 PO
[2023-09-05 12:11] VITALS: O2SAT 98
[2023-09-05] MEDS ORDERED: ACETAMINOPHEN I.V. 1000 MG 100 ML IV ONE (13:40)
[2023-09-05] MEDS ORDERED: HYDROmorphone 1 MG/ML INJ. CARTRIDGE IVP PRN ×2 (13:45)
[2023-09-05] MEDS ORDERED: MIDAZOLAM HCL 2 MG/2 ML VIAL (VERSED) IVP PRN (13:45)
[2023-09-05] MEDS ORDERED: NACL 0.9% 1,000 ML IV SCH (13:45)
[2023-09-05] MEDS ORDERED: MEPERIDINE HCL/PF 25 MG/ML DISP.SYRIN IVP PRN (13:45)
[2023-09-05] MEDS ORDERED: METOCLOPRAMIDE HCL 10 MG/2 ML VIAL IVP PRN (13:45)
[2023-09-05] MEDS ORDERED: PROPOFOL 200MG/ 20ML VIAL (DIPRIVAN) IV ONE (14:43)
[2023-09-05] MEDS ORDERED: LIDOCAINE 2%, 20 ML MDV ONE (14:43)
[2023-09-05] MEDS ORDERED: METOPROLOL TARTRATE 5 MG/5 ML VIAL ONE (14:43)
[2023-09-05] MEDS ORDERED: ONDANSETRON HCL 4 MG/2 ML VIAL ONE (14:43)
[2023-09-05] MEDS ORDERED: LR 1,000 ML IV.SOLN IV ONE (14:43)
[2023-09-05] MEDS ORDERED: ROCURONIUM BROMIDE 10 MG/ML (ZEMURON) ONE (14:43)
[2023-09-05] MEDS ORDERED: MIDAZOLAM HCL 5 MG/ML VIAL (VERSED) IV ONE (14:43)
[2023-09-05] MEDS ORDERED: DESFLURANE 15 MIN GAS INH ONE (14:43)
[2023-09-05] MEDS ORDERED: fentaNYL CITRATE/PF 100 MCG/2 ML AMP ONE (14:43)
[2023-09-05] MEDS ORDERED: SUGAMMADEX SODIUM 200 MG/2 ML VIAL IV ONE (14:43)
[2023-09-05] MEDS ORDERED: DEXAMETHASONE SOD PHOSPHATE 4 MG/ML VIAL ONE (14:43)
[2023-09-05 17:21] VITALS: BP_SYST 133; PULSE 88; RESP 18
== END 2023-09-05 17:10 | disposition home or self-care (01) ==
LOC: SDS 10:27 → SMU 10:32 → SDS 17:10
PROVIDERS: ATTEND Otolaryngology
DX: D38.5 Neoplasm of uncertain behavior of other respiratory organs (principal); J32.9 Chronic sinusitis, unspecified; I25.10 Atherosclerotic heart disease of native coronary artery without angina pectoris; I95.9 Hypotension, unspecified; F17.210 Nicotine dependence, cigarettes, uncomplicated; E11.22 Type 2 diabetes mellitus with diabetic chronic kidney disease; N18.9 Chronic kidney disease, unspecified; I25.9 Chronic ischemic heart disease, unspecified; E11.49 Type 2 diabetes mellitus with other diabetic neurological complication; F14.10 Cocaine abuse, uncomplicated; Z79.899 Other long term (current) drug therapy
CPT/HCPCS: 31296; 30140; 30520; 82962; 88304; 88311; 31257; 31256; J3490 ×2; J1100; J2001; J2250; J2405; J2704; J3010; J7120; C1726; J0131; 88305

== ENCOUNTER → 2023-10-31 | Emergency (ER) | payer MEDICAID ==
[~2023-10-31] MED LIST changes: +ASPIRIN 325 MG TABLET PO ONE
[2023-10-31 15:55] LABS: BASOPHILS # (AUTO) 0.1 K/uL (0.0-0.2); BASOPHILS % (AUTO) 0.8 % (0.0-2.0); EOSINOPHILS # (AUTO) 0.2 K/uL (0.0-0.4); EOSINOPHILS % (AUTO) 2.4 % (0.0-4.0); HEMATOCRIT 46.4 % (36-54); HEMOGLOBIN 15.7 g/dL (14.0-18.0); LYMPHOCYTES # (AUTO) 2.5 K/uL (1.0-5.5); LYMPHOCYTES % (AUTO) 31.3 % (20.5-51.5); MEAN CORPUSCULAR HEMOGLOBIN 31 pg (27-31); MEAN CORPUSCULAR HGB CONC 34 % (32-36); MEAN CORPUSCULAR VOLUME 92 fL (79.0-98.0); MONOCYTES # (AUTO) 0.6 K/uL (0.0-1.0); MONOCYTES % (AUTO) 7.6 % (1.7-9.3); NEUTROPHILS # (AUTO) 4.7 K/uL (1.8-7.7); NEUTROPHILS % (AUTO) 57.9 % (40.0-70.0); PLATELET COUNT (AUTO) 223 K/uL (130-430); RED BLOOD CELL COUNT(AUTO) 5.03 MIL/uL (4.2-6.2); RED CELL DISTRIBUTION WIDTH 14.8 % (9.0-15.0)
[2023-10-31 16:03] LABS: ANION GAP 8 (5-15); CALCIUM 9.1 mg/dL (8.4-11.0); CARBON DIOXIDE 31 mmol/L (23-29); CHLORIDE 103 mmol/L (98-107); GFR AFRICAN AMERICAN 98 mL/min (>90); GLUCOSE 289 mg/dL (74-106); POTASSIUM 4.6 mmol/L (3.5-5.1); SODIUM SERUM 142 mmol/L (136-145); UREA NITROGEN, BLOOD 11 mg/dL (8-21)
[2023-10-31 16:06] LABS: GFR NON AFRICAN-AMERICAN 81 mL/min (>90)
== END | disposition left against medical advice (07) ==
LOC: SED 12:50
DX: R07.9 Chest pain, unspecified (principal); E11.9 Type 2 diabetes mellitus without complications; I10 Essential (primary) hypertension; Z88.1 Allergy status to other antibiotic agents; Z79.899 Other long term (current) drug therapy
CPT/HCPCS: 36415; 71045; 80048; 84484; 85025; 85379; 93005; 99285

== ENCOUNTER 2024-06-24 11:34 | Inpatient (IN) | payer MEDICAID ==
[~2024-06-24] VITALS: Ht 180.3 cm; Wt 71.4 kg
[~2024-06-24 11:34] MED LIST changes: -ASPIRIN 325 MG TABLET PO ONE
[2024-06-24 11:44] VITALS: BP_SYST 142; PULSE 110; RESP 18; TEMP 98.3; O2SAT 96
[2024-06-24] MEDS ORDERED: VANCOMYCIN HCL 1000 MG/VIAL IV ONE (12:28)
[2024-06-24] MEDS ORDERED: PIPERACILLIN/TAZOBACTAM 3.375 GM/VIAL (ZOSYN) IV ONE (12:29)
[2024-06-24 12:32] LABS: BASOPHILS % (AUTO) 0.4 % (0.0-2.0); EOSINOPHILS # (AUTO) 0.1 K/uL (0.0-0.4); EOSINOPHILS % (AUTO) 0.7 % (0.0-4.0); HEMATOCRIT 44.4 % (36-54); HEMOGLOBIN 14.5 g/dL (14.0-18.0); LYMPHOCYTES # (AUTO) 1.6 K/uL (1.0-5.5); LYMPHOCYTES % (AUTO) 14.5 % (20.5-51.5); MEAN CORPUSCULAR HEMOGLOBIN 31 pg (27-31); MEAN CORPUSCULAR HGB CONC 33 % (32-36); MEAN CORPUSCULAR VOLUME 93 fL (79.0-98.0); MONOCYTES # (AUTO) 0.9 K/uL (0.0-1.0); MONOCYTES % (AUTO) 7.7 % (1.7-9.3); NEUTROPHILS # (AUTO) 8.6 K/uL (1.8-7.7); NEUTROPHILS % (AUTO) 76.7 % (40.0-70.0); PLATELET COUNT (AUTO) 216 K/uL (130-430); RED BLOOD CELL COUNT(AUTO) 4.77 MIL/uL (4.2-6.2); RED CELL DISTRIBUTION WIDTH 14.6 % (9.0-15.0); WHITE BLOOD COUNT (AUTO) 11.3 K/uL (4.8-10.8)
[2024-06-24] MEDS ORDERED: BENZ100C92 PO (12:41)
[2024-06-24] MEDS ORDERED: DULO60CA65 PO (12:41)
[2024-06-24] MEDS ORDERED: FLUD0.1T PO (12:41)
[2024-06-24] MEDS ORDERED: ASPI-524 PO (12:41)
[2024-06-24] MEDS ORDERED: LIP20 PO (12:41)
[2024-06-24] MEDS ORDERED: FERR325T30 PO (12:41)
[2024-06-24] MEDS ORDERED: BACL10TA PO (12:41)
[2024-06-24] MEDS ORDERED: HYDR-3919 PO (12:42)
[2024-06-24] MEDS ORDERED: PREG150C47 PO (12:42)
[2024-06-24] MEDS ORDERED: SEMA2PEN SQ (12:42)
[2024-06-24] MEDS ORDERED: METO5TAB86 PO (12:42)
[2024-06-24] MEDS ORDERED: EMPA25TA PO (12:42)
[2024-06-24] MEDS ORDERED: OMEP-268 PO (12:42)
[2024-06-24] MEDS ORDERED: CHOL40002 PO (12:42)
[2024-06-24] MEDS ORDERED: XALEYE TP (12:42)
[2024-06-24] MEDS ORDERED: MIDO5TAB4 PO (12:42)
[2024-06-24] MEDS ORDERED: METF1000 PO (12:42)
[2024-06-24] MEDS ORDERED: INSU100V SQ (12:42)
[2024-06-24] MEDS ORDERED: INSU100I26 SQ (12:42)
[2024-06-24 12:54] LABS: ALBUMIN 2.9 g/dL (3.4-4.8); BILIRUBIN,DIRECT 0.1 mg/dL (0.0-0.3); CALCIUM 8.5 mg/dL (8.4-11.0); CREATININE 1.15 mg/dL (0.55-1.30); POTASSIUM 3.9 mmol/L (3.5-5.1); TOTAL BILIRUBIN 0.3 mg/dL (0.0-1.0); TOTAL PROTEIN, SERUM 6.8 g/dL (6.4-8.3)
[2024-06-24] MEDS: PIPERACILLIN/TAZO 3.375 GM in NS 50 ML IV ONE (12:57)
[2024-06-24] MEDS: VANCOMYCIN HCL 1,000 MG in NS 250 ML IV ONE (12:58)
[2024-06-24] MEDS: NS 500 ML IV SCH (12:58)
[2024-06-24] MEDS ORDERED: LIPA1CAP23 PO ×2 (13:07)
[2024-06-24] MEDS ORDERED: ACETAMINOPHEN 500 MG TABLET PO PRN (14:30)
[2024-06-24] MEDS ORDERED: INSULIN REGULAR, HUMAN 100 UNITS/ML, 3 ML VIAL (humuLIN R) SUBCUT PRN (14:30)
[2024-06-24 18:29] VITALS: BP_SYST 151; PULSE 106; RESP 18; TEMP 97.4
[2024-06-24] MEDS: HYDROcodone/ACETAMIN 10-325 MG TAB PO PRN (18:36)
[2024-06-24 20:00] VITALS: BP_SYST 134; PULSE 103; RESP 18; TEMP 97.1; O2SAT 96
[2024-06-24] MEDS: ceFAZolin SODIUM 1 GM in D5W 50 ML IV SCH (21:42)
[2024-06-25] VITALS (8 sets, daily range): BP systolic 126–157; PULSE 96–105; RESP 16–18; TEMP 96.8–98.8; O2SAT 96–98
[2024-06-25] MEDS ORDERED: ONDANSETRON HCL 4 MG/2 ML VIAL IVP PRN (10:30)
[2024-06-25] MEDS ORDERED: NON-FORMULARY MEDICATION (Omeprazole 1 CAP) PO SCH (10:30)
[2024-06-25] MEDS ORDERED: INSULIN GLARGINE HUM REC ANLOG 20 UNIT SQ SCH (10:30)
[2024-06-25] MEDS ORDERED: [UNRECOGNIZED DRUG - OTHER] SQ SCH (10:30)
[2024-06-25] MEDS ORDERED: MIDODRINE HCL 5 MG TABLET (PROAMATINE) PO SCH (10:30)
[2024-06-25] MEDS ORDERED: LORazepam 2 MG/ML VIAL IVP PRN (10:30)
[2024-06-25] MEDS: CHOLECALCIFEROL (VITAMIN D3) 2,000 UNIT TABLET PO ONE (13:04)
[2024-06-25] MEDS: PIOGLITAZONE HCL 15 MG TABLET PO ONE (13:04)
[2024-06-25] MEDS: HYDROcodone/ACETAMIN 5-325 MG TAB (NORCO/ VICODIN) PO PRN (13:05)
[2024-06-25] MEDS ORDERED: AMYLASE PO SCH (15:00)
[2024-06-25] MEDS ORDERED: PROTEASE PO SCH (15:00)
[2024-06-25] MEDS ORDERED: [UNRECOGNIZED DRUG - OTHER] PO SCH (15:00)
[2024-06-25] MEDS: MIDODRINE HCL 5 MG TABLET (PROAMATINE) PO SCH (15:00)
[2024-06-25] MEDS ORDERED: LIPASE PO SCH (15:00)
[2024-06-25] MEDS: INSULIN Lispro 100 UNITS/ML, 3 ML VIAL (humaLOG) SQ SCH (15:48)
[2024-06-25] MEDS: LATANOPROST 2.5 ML DROPS (XALATAN) BOTH EYES SCH (21:00)
[2024-06-25] MEDS: BACLOFEN 10 MG TABLET PO SCH (22:43)
[2024-06-25] MEDS: METOCLOPRAMIDE HCL 10 MG TABLET PO SCH (22:43)
[2024-06-25] MEDS: FERROUS SULFATE 325 MG TABLET.DR PO SCH (22:44)
[2024-06-25] MEDS: metFORMIN HCL 500 MG TABLET PO SCH (22:44)
[2024-06-25] MEDS: LIPASE/PROTEASE/AMYLASE 1 CAP PO SCH (22:44)
[2024-06-25] MEDS: ATORVASTATIN 20 MG TABLET PO SCH (22:45)
[2024-06-26 00:10] VITALS: BP_SYST 130; PULSE 98; RESP 16; TEMP 97.8; O2SAT 97
[2024-06-26 07:56] LABS: BASOPHILS % (AUTO) 0.3 % (0.0-2.0); EOSINOPHILS # (AUTO) 0.1 K/uL (0.0-0.4); EOSINOPHILS % (AUTO) 1.3 % (0.0-4.0); HEMATOCRIT 48.4 % (36-54); LYMPHOCYTES # (AUTO) 1.9 K/uL (1.0-5.5); LYMPHOCYTES % (AUTO) 17.8 % (20.5-51.5); MEAN CORPUSCULAR HEMOGLOBIN 31 pg (27-31); MEAN CORPUSCULAR HGB CONC 33 % (32-36); MEAN CORPUSCULAR VOLUME 93 fL (79.0-98.0); MONOCYTES # (AUTO) 0.7 K/uL (0.0-1.0); MONOCYTES % (AUTO) 6.3 % (1.7-9.3); NEUTROPHILS # (AUTO) 7.9 K/uL (1.8-7.7); NEUTROPHILS % (AUTO) 74.3 % (40.0-70.0); PLATELET COUNT (AUTO) 232 K/uL (130-430); RED CELL DISTRIBUTION WIDTH 14.1 % (9.0-15.0); WHITE BLOOD COUNT (AUTO) 10.7 K/uL (4.8-10.8)
[2024-06-26 08:00] VITALS: BP_SYST 147; PULSE 100; RESP 16; TEMP 98.4; O2SAT 97
[2024-06-26 08:22] LABS: CALCIUM 8.6 mg/dL (8.4-11.0); CREATININE 0.8 mg/dL (0.55-1.30); POTASSIUM 3.9 mmol/L (3.5-5.1)
[2024-06-26] MEDS: DULoxetine HCL 30 MG CAPSULE.DR (CYMBALTA) PO SCH (09:43)
[2024-06-26] MEDS: ASPIRIN 81 MG TABLET(ECOTRIN) PO SCH (09:44)
[2024-06-26] MEDS: FLUDROCORTISONE ACETATE 0.1 MG TABLET( FLORINEF) PO SCH (09:44)
[2024-06-26] MEDS: CHOLECALCIFEROL (VITAMIN D3) 2,000 UNIT TABLET PO SCH (09:44)
[2024-06-26] MEDS: TAMSULOSIN HCL 0.4 MG CAP PO SCH (09:44)
[2024-06-26] MEDS: BENZONATATE 100 MG CAPSULE (TESSALON) PO SCH (09:45)
[2024-06-26] MEDS: PANTOPRAZOLE SODIUM 40 MG TAB PO SCH (09:45)
[2024-06-26] MEDS: BALSAM PERU/CASTOR OIL 56.7 GM OINT...G. TP SCH (10:00)
[2024-06-26] MEDS: EMPAGLIFLOZIN 10 MG TABLET PO SCH (10:01)
[2024-06-26] MEDS: PIOGLITAZONE HCL 15 MG TABLET PO SCH (10:01)
[2024-06-26] MEDS: INSULIN GLARGINE 100 UNITS/ML, 10 ML VIAL SUBCUT SCH (10:30)
[2024-06-26 11:10] VITALS: O2SAT 97
[2024-06-26 12:47] VITALS: BP_SYST 168; PULSE 68; RESP 18; TEMP 98.4; O2SAT 97
[2024-06-26 16:42] VITALS: BP_SYST 135; PULSE 119; RESP 18; TEMP 98.1; O2SAT 99
[2024-06-26 20:00] VITALS: BP_SYST 137; PULSE 103; RESP 18; TEMP 98.1; O2SAT 98
[2024-06-27] VITALS: BP_SYST 124; PULSE 105; RESP 18; TEMP 98.4; O2SAT 97
[2024-06-27 08:00] VITALS: BP_SYST 127; PULSE 110; RESP 14; TEMP 98.4; O2SAT 99
[2024-06-27 08:49] LABS: BASOPHILS % (AUTO) 0.5 % (0.0-2.0); EOSINOPHILS # (AUTO) 0.1 K/uL (0.0-0.4); EOSINOPHILS % (AUTO) 1.1 % (0.0-4.0); HEMATOCRIT 47.3 % (36-54); HEMOGLOBIN 15.7 g/dL (14.0-18.0); LYMPHOCYTES # (AUTO) 2.2 K/uL (1.0-5.5); LYMPHOCYTES % (AUTO) 22.8 % (20.5-51.5); MEAN CORPUSCULAR HEMOGLOBIN 31 pg (27-31); MEAN CORPUSCULAR HGB CONC 33 % (32-36); MEAN CORPUSCULAR VOLUME 93 fL (79.0-98.0); MONOCYTES # (AUTO) 0.7 K/uL (0.0-1.0); MONOCYTES % (AUTO) 7.9 % (1.7-9.3); NEUTROPHILS # (AUTO) 6.4 K/uL (1.8-7.7); NEUTROPHILS % (AUTO) 67.7 % (40.0-70.0); PLATELET COUNT (AUTO) 240 K/uL (130-430); RED BLOOD CELL COUNT(AUTO) 5.09 MIL/uL (4.2-6.2); RED CELL DISTRIBUTION WIDTH 14.6 % (9.0-15.0); WHITE BLOOD COUNT (AUTO) 9.5 K/uL (4.8-10.8)
[2024-06-27 08:58] LABS: ERYTHROCYTE SEDIMENTATION RATE 38 MM/HR (0-15)
[2024-06-27 08:59] LABS: CALCIUM 8.7 mg/dL (8.4-11.0); CREATININE 0.81 mg/dL (0.55-1.30); POTASSIUM 4.1 mmol/L (3.5-5.1)
[2024-06-27 11:02] VITALS: BP_SYST 142; PULSE 107; RESP 16; TEMP 97; O2SAT 98
[2024-06-27 13:04] VITALS: O2SAT 99
[2024-06-27 15:01] VITALS: BP_SYST 122; PULSE 109; RESP 16; TEMP 98.8; O2SAT 96
[2024-06-27 20:00] VITALS: BP_SYST 127; BP_SYST 132; PULSE 99; RESP 18; TEMP 98; TEMP 98.9; O2SAT 99
[2024-06-28] VITALS: BP_SYST 132; PULSE 89; RESP 18; TEMP 98.5; O2SAT 99
[2024-06-28 06:29] LABS: ERYTHROCYTE SEDIMENTATION RATE 30 MM/HR (0-15)
[2024-06-28 06:33] LABS: BASOPHILS % (AUTO) 0.4 % (0.0-2.0); EOSINOPHILS # (AUTO) 0.2 K/uL (0.0-0.4); EOSINOPHILS % (AUTO) 1.4 % (0.0-4.0); HEMATOCRIT 44.8 % (36-54); HEMOGLOBIN 14.9 g/dL (14.0-18.0); LYMPHOCYTES # (AUTO) 2.3 K/uL (1.0-5.5); LYMPHOCYTES % (AUTO) 22.3 % (20.5-51.5); MEAN CORPUSCULAR HEMOGLOBIN 31 pg (27-31); MEAN CORPUSCULAR HGB CONC 33 % (32-36); MEAN CORPUSCULAR VOLUME 92 fL (79.0-98.0); MONOCYTES % (AUTO) 9.2 % (1.7-9.3); NEUTROPHILS % (AUTO) 66.7 % (40.0-70.0); PLATELET COUNT (AUTO) 250 K/uL (130-430); RED BLOOD CELL COUNT(AUTO) 4.89 MIL/uL (4.2-6.2); RED CELL DISTRIBUTION WIDTH 14.3 % (9.0-15.0); WHITE BLOOD COUNT (AUTO) 10.5 K/uL (4.8-10.8)
[2024-06-28 06:54] LABS: ALBUMIN 2.7 g/dL (3.4-4.8); CALCIUM 8.7 mg/dL (8.4-11.0); CREATININE 0.95 mg/dL (0.55-1.30); POTASSIUM 3.7 mmol/L (3.5-5.1); TOTAL BILIRUBIN 0.2 mg/dL (0.0-1.0); TOTAL PROTEIN, SERUM 6.6 g/dL (6.4-8.3)
[2024-06-28 08:15] VITALS: BP_SYST 142; PULSE 101; RESP 20; TEMP 97.8; O2SAT 98
[2024-06-28 08:30] VITALS: O2SAT 100
[2024-06-28] MEDS ORDERED: CEPH250C PO (09:29)
[2024-06-28] MEDS ORDERED: CIPR500T5 PO (11:05)
[2024-06-28 11:29] VITALS: BP_SYST 148; PULSE 99; RESP 16; TEMP 96.9; O2SAT 100
[2024-06-28 11:59] VITALS: BP_SYST 148; PULSE 99; RESP 16; TEMP 96.9; O2SAT 100
[2024-06-28 12:00] VITALS: BP_SYST 148; PULSE 99; RESP 16; TEMP 96.9
== END 2024-06-28 12:25 | disposition home health service (06) | DRG 420 ==
LOC: SED 11:34 → SMU 14:09
PROVIDERS: ADMIT Preventive Medicine Preventive Medicine/Occupational Environmental Medicine; ATTEND Preventive Medicine Preventive Medicine/Occupational Environmental Medicine
DX: E11.628 Type 2 diabetes mellitus with other skin complications (principal); E43 Unspecified severe protein-calorie malnutrition; L03.115 Cellulitis of right lower limb; E11.40 Type 2 diabetes mellitus with diabetic neuropathy, unspecified; E88.09 Other disorders of plasma-protein metabolism, not elsewhere classified; E11.65 Type 2 diabetes mellitus with hyperglycemia; E55.9 Vitamin D deficiency, unspecified; H40.9 Unspecified glaucoma; I25.10 Atherosclerotic heart disease of native coronary artery without angina pectoris; I10 Essential (primary) hypertension; K21.9 Gastro-esophageal reflux disease without esophagitis; E78.5 Hyperlipidemia, unspecified; N40.0 Benign prostatic hyperplasia without lower urinary tract symptoms; I25.2 Old myocardial infarction; Z95.5 Presence of coronary angioplasty implant and graft; Z79.899 Other long term (current) drug therapy; Z79.84 Long term (current) use of oral hypoglycemic drugs; Z88.8 Allergy status to other drugs, medicaments and biological substances; Z79.82 Long term (current) use of aspirin; Z79.4 Long term (current) use of insulin; Z68.20 Body mass index [BMI] 20.0-20.9, adult
CPT/HCPCS: 36415; 80048; 80053; 80076; 82948; 83690; 85025; 85651; 87040; 99285; J0690; J1815; J2543; J3370; J7050; J7060; J8597